=== PATIENT | female | born 1980 | race Caucasian/White ===

== ENCOUNTER 2024-02-28 22:00 | Inpatient (IN) | payer OTHER ==
[~2024-02-28] VITALS: Ht 160 cm; Wt 50.0 kg
[2024-02-28 22:57] LABS: BASOPHILS % (AUTO) 0.9 % (0.0-2.0); EOSINOPHILS % (AUTO) 2.7 % (1.0-6.0); HEMATOCRIT 38.2 % (36-46); HEMOGLOBIN 12.3 g/dL (12.0-16.0); LYMPHOCYTES # (AUTO) 1.9 K/uL (1.0-4.8); LYMPHOCYTES % (AUTO) 27.3 % (22.0-44.0); MEAN CORPUSCULAR HEMOGLOBIN 29.2 pg (26.0-34.0); MEAN CORPUSCULAR HGB CONC 32.1 G/dL (31.0-37.0); MEAN CORPUSCULAR VOLUME 91 fL (80-100); MONOCYTES # (AUTO) 0.7 K/uL (0.1-1.0); MONOCYTES % (AUTO) 10.4 % (2.0-9.0); NEUTROPHILS % (AUTO) 58.7 % (40.0-70.0); PLATELET COUNT (AUTO) 282 K/uL (150-450); RED CELL DISTRIBUTION WIDTH 13.2 % (11.5-14.5); WHITE BLOOD COUNT (AUTO) 6.9 K/uL (4.5-11.0)
[2024-02-28 23:08] LABS: ANION GAP 10 mmol/L (8-16); CALCIUM, TOTAL 8.3 mg/dL (8.8-10.5); CARBON DIOXIDE 22 mmol/L (22-29); CHLORIDE 107 mmol/L (98-107); GLOMERULAR FILTR. RATE CALC > 60 mL/min (>60); GLUCOSE,RANDOM 114 mg/dL (70-110); POTASSIUM 3.1 mmol/L (3.5-5.1); SODIUM SERUM 139 mmol/L (136-145); UREA NITROGEN, BLOOD 9 mg/dL (7-18)
[2024-02-28] MEDS: POTASSIUM CHLORIDE 20 MEQ ER TABLET PO ONE (23:52)
[2024-02-29] MEDS ORDERED: ATOM40CA9 PO (00:27)
[2024-02-29] MEDS ORDERED: OXCA300T70 PO (00:27)
[2024-02-29] MEDS ORDERED: RIFA300C63 PO (00:27)
[2024-02-29] MEDS ORDERED: TOPI100T37 PO (00:27)
[2024-02-29] MEDS ORDERED: FLUO-342 PO (00:27)
[2024-02-29] MEDS ORDERED: GUAN3TAB PO (00:27)
[2024-02-29] MEDS: GuanFACINE HCL 1 MG TABLET PO SCH (02:30)
[2024-02-29 08:23] VITALS: BP 113/77; PULSE 85; RESP 19; TEMP 98; O2SAT 100
[2024-02-29] MEDS ORDERED: MORPHINE SULFATE 2 MG/ML SYRINGE IVP PRN (09:15)
[2024-02-29] MEDS ORDERED: ONDANSETRON HCL 4 MG/2 ML VIAL IVP PRN (09:15)
[2024-02-29] MEDS ORDERED: ZOLPIDEM TARTRATE 5 MG TABLET PO PRN (09:15)
[2024-02-29] MEDS ORDERED: BISACODYL 10 MG RECTAL RECTAL SUPPOSITORY PR PRN (09:15)
[2024-02-29] MEDS ORDERED: ALBUTEROL SULFATE 2.5 MG/0.5 ML NEB SOLUTION NEB PRN (09:15)
[2024-02-29] MEDS ORDERED: IPRATROPIUM BROMIDE 0.5 MG/2.5 ML NEB SOLUTION NEB PRN (09:15)
[2024-02-29] MEDS ORDERED: ACETAMINOPHEN 325 MG TABLET PO PRN (09:15)
[2024-02-29] MEDS ORDERED: HYDROCODONE/ACETAMINOPHEN 5-325 MG TABLET PO PRN (09:15)
[2024-02-29] MEDS ORDERED: MAGNESIUM HYDROXIDE SUSPENSION 30 ML UDCUP PO PRN (09:15)
[2024-02-29] MEDS: RIFAMPIN 300 MG CAPSULE PO SCH (10:15)
[2024-02-29 10:41] LABS: APPEARANCE,URINE CLEAR (CLEAR); BILIRUBIN,URINE NEGATIVE (NEGATIVE); COLOR,URINE COLORLESS (YELLOW); GLUCOSE, URINE (UA) NEGATIVE (NEGATIVE); KETONES,URINE NEGATIVE (NEGATIVE); LEUKOCYTE ESTERASE ,URINE NEGATIVE (NEGATIVE); NITRATE,URINE NEGATIVE (NEGATIVE); OCCULT BLOOD,URINE NEGATIVE (NEGATIVE); PROTEIN,URINE NEGATIVE (NEGATIVE); SPECIFIC GRAVITIY, URINE 1.008 (1.003-1.030); UROBILINOGEN,URINE <=1.0 mg/dL (<=1.0)
[2024-02-29 10:47] LABS: ALCOHOL, URINE DRUG SCREEN NEGATIVE (NEGATIVE); AMPHET/METH SCREEN,URINE NEGATIVE (NEGATIVE); BARBITURATE SCREEN, URINE NEGATIVE (NEGATIVE); BENZODIAZEPINES SCREEN,URINE NEGATIVE (NEGATIVE); CANNABINOID SCREEN,URINE NEGATIVE (NEGATIVE); COCAINE SCREEN,URINE NEGATIVE (NEGATIVE); METHADONE SCREEN, URINE NEGATIVE (NEGATIVE); OPIATE SCREEN,URINE NEGATIVE (NEGATIVE); PHENCYCLIDINE SCREEN,URINE NEGATIVE (NEGATIVE)
[2024-02-29 14:44] VITALS: BP 112/70; PULSE 80; RESP 19; TEMP 98; O2SAT 96
[2024-02-29 16:30] VITALS: BP 116/75; PULSE 75; RESP 19; TEMP 98
[2024-02-29] MEDS: HEPARIN SODIUM,PORCINE 5,000 UNITS/ML VIAL SQ SCH (16:56)
[2024-02-29 19:30] VITALS: BP 105/64; PULSE 88; RESP 20; TEMP 98.3; O2SAT 97
[2024-03-01 04:00] VITALS: BP 107/65; PULSE 88; RESP 18; TEMP 98.4; O2SAT 99
[2024-03-01 07:33] VITALS: BP 130/69; PULSE 95; RESP 18; TEMP 98.4; O2SAT 100
[2024-03-01] MEDS: PANTOPRAZOLE SODIUM 40 MG DR TABLET PO SCH (08:05)
[2024-03-01] MEDS: PYRIDOXINE HCL 50 MG TABLET PO SCH (08:06)
[2024-03-01] MEDS: ATOMOXETINE HCL 40 MG CAPSULE PO SCH (12:36)
[2024-03-01] MEDS: TOPIRAMATE 100 MG TABLET PO SCH (12:37)
[2024-03-01] MEDS: FLUoxetine HCL 10 MG CAPSULE PO SCH (12:37)
[2024-03-01 15:22] VITALS: BP 102/67; PULSE 111; RESP 18; TEMP 98.5; O2SAT 96
== END 2024-03-01 17:05 | DRG 425 ==
LOC: EMS 22:00 → EDH 02-29 01:47 → 6N 02-29 08:05
PROVIDERS: ADMIT Hospitalist; ATTEND Hospitalist
PROC: GZ56ZZZ Individual Psychotherapy, Supportive (ICD-10-PCS; principal; 2024-03-01)
DX: E87.6 Hypokalemia (principal); F31.4 Bipolar disorder, current episode depressed, severe, without psychotic features; F15.90 Other stimulant use, unspecified, uncomplicated; F41.9 Anxiety disorder, unspecified; F43.10 Post-traumatic stress disorder, unspecified; I10 Essential (primary) hypertension; Z86.11 Personal history of tuberculosis; Z88.0 Allergy status to penicillin; Z72.89 Other problems related to lifestyle; Z91.011 Allergy to milk products; Z22.7 Latent tuberculosis
CPT/HCPCS: 71045; 80048; 80307; 81003; 84132; 84703; 85025; 99285; G0480; J1644; 36415-L1; 36415-TC